=== PATIENT | male | born 1975 | race African-American/Black ===

== ENCOUNTER 2025-04-30 05:11 | Emergency (ER) | payer OTHER ==
[~2025-04-30] VITALS: Ht 175.3 cm; Wt 89.8 kg
[~2025-04-30 05:11] MED LIST: AZOR 5-40 MG T1 EACH PO; HYDROCHLOROTH12.5 MG PO
[2025-04-30 06:20] LABS: CORONAVIRUS COVID-19 AG NEGATIVE (NEGATIVE)
[2025-04-30] MEDS: ACETAMINOPHEN 325 MG TAB PO ONE (06:20)
[2025-04-30] MEDS: BENZONATATE 100 MG CAP PO STA (07:04)
[2025-04-30 07:40] VITALS: PULSE 91; RESP 18; TEMP 99.1; O2SAT 99
[2025-04-30] MEDS ORDERED: BENZONATATE100 MG PO (07:51)
== END 2025-04-30 08:10 | disposition home or self-care (01) ==
LOC: ER 06:23
DX: R50.9 Fever, unspecified (principal); J06.9 Acute upper respiratory infection, unspecified; R05.9 Cough, unspecified; R53.81 Other malaise; Z11.52 Encounter for screening for COVID-19
CPT/HCPCS: 71046; 99284